=== PATIENT | male | born 1965 ===

== ENCOUNTER 2017-10-07 19:55 | Emergency (ER) | payer BC ==
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
[2017-10-07 22:41] VITALS: BP 122/84
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
== END 2017-10-07 22:41 | disposition home or self-care (01) ==
LOC: ED 19:55
DX: S93.491A Sprain of other ligament of right ankle, initial encounter (principal); V19.9XXA Pedal cyclist (driver) (passenger) injured in unspecified traffic accident, initial encounter; Y93.55 Activity, bike riding; Y92.9 Unspecified place or not applicable
CPT/HCPCS: 99282